=== PATIENT | male | born 1990 | race African-American/Black ===

== ENCOUNTER 2018-04-09 22:46 | Emergency (ER) | payer SELFPAY ==
[~2018-04-09] VITALS: Ht 175.3 cm; Wt 77.3 kg
[2018-04-10] MEDS ORDERED: IBUPROFEN 600MG TABLET PO ONE (01:30)
[2018-04-10 01:47] VITALS: BP 124/82
== END 2018-04-10 01:48 | disposition home or self-care (01) ==
LOC: ER 22:46
DX: R68.84 Jaw pain (principal); K08.89 Other specified disorders of teeth and supporting structures
CPT/HCPCS: 99283